=== PATIENT | male | born 1970 | race Caucasian/White ===

== ENCOUNTER 2022-02-11 05:17 | Emergency (ER) | payer BC ==
[2022-02-11 05:21] VITALS: TEMP 98.2
[2022-02-11] MEDS ORDERED: ONDANSETRON 4 MG/2 ML VIAL IVP STA (05:27)
[2022-02-11] MEDS ORDERED: SODIUM CHLORIDE 0.9% 1,000 ML IV STA ×2 (05:27)
[2022-02-11] MEDS ORDERED: MORPHINE SULFATE 4 MG/ML SYRINGE IV STA (05:27)
[2022-02-11] MEDS ORDERED: KETOROLAC 15 MG/ML 1 ML VIAL IVP STA (05:27)
[2022-02-11] MEDS ORDERED: SODIUM CHLORIDE 0.9% 500 ML 500 ML IV STA (05:27)
--- NOTE | 2022-02-11 05:29 | ED ---
Abdominal Pain HPI - General Chief Complaint: Abdominal Pain Stated Complaint: RT side kidney stone Time Seen by Provider: 02/11/22 05:26 Source: patient, RN notes reviewed, old records reviewed Mode of arrival: ambulatory Limitations: no limitations - History of Present Illness Initial Comments: This is a 51-year-old male to the emergency department for evaluation. Patient comes in with severe sudden onset of right flank pain this pain woke well from sleep and is causing significant nausea vomiting since and started going on for about an hour to 2 hours now. Patient does have history of kidney stones but has been about 6 or 7 years this pain is worse and he remembers. Patient denies any traumas a sudden onset of pain without fever or other complaint. MD Complaint: abdominal pain, flank pain -: hour(s) Location: suprapubic, R flank Radiation: suprapubic, R flank Migration to: RLQ Severity scale (1-10): 9 Quality: sharp Consistency: constant Improves With: nothing Worsens With: nothing Associated Symptoms: nausea, vomiting Treatments Prior to Arrival: other (none) - Related Data Home Medications Medication Instructions Recorded Confirmed Inulin/Chromium Picolinate [Fiber 2 tab PO DAILY 06/15/16 06/15/16 Gummies Chew] Previous Rx's Medication Instructions Recorded HYDROcodone/APAP 5-325MG [[place] 1 tab PO Q4HR PRN #20 tab 06/15/16 5-325] Ondansetron Odt [Zofran Odt] 4 mg PO Q8HR PRN #12 tab 06/15/16 Tamsulosin HCl [Flomax] 0.4 mg PO DAILY #12 cap 06/15/16 Allergies Allergy/AdvReac Type Severity Reaction Status Date / Time No Known Allergies Allergy Verified 02/11/22 05:18 Review of Systems ROS Statement: Those systems with pertinent positive or pertinent negative responses have been documented in the HPI. ROS Other: All systems not noted in ROS Statement are negative. Past Medical History Past Medical History: GERD/Reflux Additional Past Medical History / Comment(s): diverticultis,kidney stones History of Any Multi-Drug Resistant Organisms: None Reported Past Surgical History: No Surgical Hx Reported Additional Past Surgical History / Comment(s): EGD Past Anesthesia/Blood Transfusion Reactions: No Reported Reaction Past Psychological History: No Psychological Hx Reported Smoking Status: Never smoker Past Alcohol Use History: None Reported Past Drug Use History: None Reported - Past Family History Father Family Medical History: Pulmonary Embolus General Exam Limitations: no limitations General appearance: alert, in no apparent distress Head exam: Present: atraumatic, normocephalic, normal inspection Eye exam: Present: normal appearance, PERRL, EOMI. Absent: scleral icterus, conjunctival injection, periorbital swelling ENT exam: Present: normal exam, mucous membranes moist Neck exam: Present: normal inspection. Absent: tenderness, meningismus, lymphadenopathy Respiratory exam: Present: normal lung sounds bilaterally. Absent: respiratory distress, wheezes, rales, rhonchi, stridor Cardiovascular Exam: Present: regular rate, normal rhythm, normal heart sounds. Absent: systolic murmur, diastolic murmur, rubs, gallop, clicks GI/Abdominal exam: Present: soft, normal bowel sounds. Absent: distended, tenderness, guarding, rebound, rigid Extremities exam: Present: normal inspection, full ROM, normal capillary refill. Absent: tenderness, pedal edema, joint swelling, calf tenderness Back exam: Present: normal inspection Neurological exam: Present: alert, oriented X3, CN II-XII intact Psychiatric exam: Present: normal affect, normal mood Skin exam: Present: warm, dry, intact, normal color. Absent: rash Course Vital Signs 02/11/22 02/11/22 05:18 06:41 Temperature 98.2 F Pulse Rate 70 60 Respiratory 16 20 Rate Blood Pressure 153/108 165/90 O2 Sat by Pulse 96 95 Oximetry - Reevaluation(s) Reevaluation #1: 02/11/22 Medical record is reviewed Reevaluation #2: 02/11/22 Patient's pain is improved Patient did require second dose of pain medication Reevaluation #3: 02/11/22 Patient informed results, questions answered Medical Decision Making - Medical Decision Making 51 male to ER with kidney stones history of kidney stones. Patient presents with positive kidney stones today obstructing pain is well-controlled currently can be discharged home - Lab Data Result diagrams: 02/11/22 05:32 02/11/22 05:32 Lab Results 02/11/22 02/11/22 02/11/22 Range/Units 05:32 05:32 05:32 WBC 8.7 (3.8-10.6) k/uL RBC 4.84 (4.30-5.90) m/uL Hgb 15.7 (13.0-17.5) gm/dL Hct 45.3 (39.0-53.0) % MCV 93.7 (80.0-100.0) fL MCH 32.4 (25.0-35.0) pg MCHC 34.6 (31.0-37.0) g/dL RDW 13.4 (11.5-15.5) % Plt Count 257 (150-450) k/uL MPV 8.0 Neutrophils % (Manual) 39 % Lymphocytes % (Manual) 51 % Monocytes % (Manual) 7 % Eosinophils % (Manual) 2 % Basophils % (Manual) 1 % Neutrophils # (Manual) 3.39 (1.3-7.7) k/uL Lymphocytes # (Manual) 4.44 (1.0-4.8) k/uL Monocytes # (Manual) 0.61 (0-1.0) k/uL Eosinophils # (Manual) 0.17 (0-0.7) k/uL Basophils # (Manual) 0.09 (0-0.2) k/uL Nucleated RBCs 0 (0-0) /100 WBC Differential Comment Manual Slide Review Performed RBC Morphology Normal Sodium 139 (137-145) mmol/L Potassium 4.3 (3.5-5.1) mmol/L Chloride 109 H (98-107) mmol/L Carbon Dioxide 24 (22-30) mmol/L Anion Gap 6 mmol/L BUN 19 (9-20) mg/dL Creatinine 1.13 (0.66-1.25) mg/dL Est GFR (CKD-EPI)AfAm 88 (>60 ml/min/1.73 sqM) Est GFR (CKD-EPI)NonAf 76 (>60 ml/min/1.73 sqM) Glucose 114 H (74-99) mg/dL Calcium 8.9 (8.4-10.2) mg/dL Total Bilirubin 0.7 (0.2-1.3) mg/dL AST 41 (17-59) U/L ALT 59 H (4-49) U/L Alkaline Phosphatase 67 (38-126) U/L Total Protein 7.0 (6.3-8.2) g/dL Albumin 4.2 (3.5-5.0) g/dL Amylase 90 (30-110) U/L Lipase 103 (23-300) U/L Urine Color Yellow Urine Appearance Clear (Clear) Urine pH 5.5 (5.0-8.0) Ur Specific [place] 1.018 (1.001-1.035) Urine Protein Negative (Negative) Urine Glucose (UA) Negative (Negative) Urine Ketones Negative (Negative) Urine Blood Large H (Negative) Urine Nitrite Negative (Negative) Urine Bilirubin Negative (Negative) Urine Urobilinogen <2.0 (<2.0) mg/dL Ur Leukocyte Esterase Negative (Negative) Urine RBC >182 H (0-5) /hpf Urine WBC 1 (0-5) /hpf Hyaline Casts 3 H (0-2) /lpf Urine Mucus Rare H (None) /hpf Urine Yeast (Budding) Few H (None) /hpf - Radiology Data Radiology results: report reviewed (CT abdomen and pelvis positive for obstructing kidney stone), image reviewed Disposition Clinical Impression: Abdominal pain, Right ureteral calculus Disposition: HOME SELF-CARE Condition: Good Instructions (If sedation given, give patient instructions): Kidney Stones (ED) Is patient prescribed a controlled substance at d/c from ED?: No Referrals: Jose Reed DO [Primary Care Provider] - 1-2 days Raza Barnes MD [STAFF PHYSICIAN] - 1-2 days Time of Disposition: 06:45
[2022-02-11 05:56] LABS: Albumin 4.2 g/dL (3.5-5.0); Calcium 8.9 mg/dL (8.4-10.2); Potassium 4.3 mmol/L (3.5-5.1); Total Bilirubin 0.7 mg/dL (0.2-1.3)
[2022-02-11] MEDS ORDERED: IBUPROFEN 600 MG STARTER PACK 4 TAB BTL PO STA (06:18)
[2022-02-11] MEDS ORDERED: ONDANSETRON 4 MG ODT STARTER PACK 2 TAB BTL PO STA (06:18)
[2022-02-11] MEDS ORDERED: ACET/COD 300 MG/30 MG STARTER PACK 6 TAB BTL PO STA (06:18)
[2022-02-11] MEDS ORDERED: TAMSULOSIN 0.4 MG CAP.ER.24H PO STA (06:24)
[2022-02-11] MEDS ORDERED: HYDROmorphone 1 MG/ML 1 ML SYRINGE IVP STA (06:34)
--- NOTE | 2022-02-11 06:37 | CT ---
EXAMINATION TYPE: CT abdomen pelvis wo con DATE OF EXAM: 02/11/2022 COMPARISON: 10/21/2014 HISTORY: pain CT DLP: 1347.3 mGycm Automated exposure control for dose reduction was used. Images obtained from the diaphragm to the floor the pelvis with no contrast. The lung bases are clear of consolidation. No pleural effusion. Heart size is normal. No pericardial effusion. There is fatty infiltration of the liver. Spleen is intact. Stomach is intact. There is no pancreatic mass. Gallbladder appears normal. The bile ducts are not dilated. There is no adrenal mass. Kidneys have normal size. There is right-sided mild hydronephrosis and obst ructing 5 mm calculus at the right ureteral pelvic junction. There are multiple small bilateral renal calculi. The ureters are not dilated. There is no retroperitoneal adenopathy. Bladder is almost empt y. No inguinal hernia. No free fluid in the pelvis. There are multiple sigmoid diverticula. No diverticulitis. Appendix is posterior and appears normal. There is no mesenteric edema. No ascites or free air. No bowel obstruction. There is 3 cm lipoma with in the right lateral abdominal wall musculature. The lumbar vertebrae have normal alignment. No compression fracture. There is vacuum disc at L5-S1. B zan pelvis is intact. The hip joints are intact. IMPRESSION: Obstructing calculus at the right ureteropelvic junction. Multiple bilateral renal calculi. Renal jose culi appear new compared to old exam. Sigmoid diverticulosis. There is clearing of the diverticulitis in the proximal sigmoid colon compare d to the old exam.
[2022-02-11 06:42] VITALS: BP 165/90; PULSE 60; RESP 20
[2022-02-11 06:44] LABS: Appearance,Urine Clear (Clear); Bilirubin,Urine Negative (Negative); Blood,Urine Large (Negative); Budding Yeast,Urine Few /hpf; Color,Urine Yellow; Glucose,Urine (UA) Negative (Negative); Hyaline Casts,Urine 3 /lpf (0-2); Ketones,Urine Negative (Negative); Leukocyte Esterase,Urine Negative (Negative); Mucus,Urine Rare /hpf; Nitrite,Urine Negative (Negative); PH, Urine 5.5 (5.0-8.0); Protein,Urine Negative (Negative); RBC,Urine >182 /hpf (0-5); Specific Gravity,Urine 1.018 (1.001-1.035); Urobilinogen,Urine <2.0 mg/dL (<2.0); WBC,Urine 1 /hpf (0-5)
[2022-02-11 06:51] LABS: HCT 45.3 % (39.0-53.0); HGB 15.7 gm/dL (13.0-17.5); MCH 32.4 pg (25.0-35.0); MCHC 34.6 g/dL (31.0-37.0); MCV 93.7 fL (80.0-100.0); Platelet Count 257 k/uL (150-450); RBC 4.84 m/uL (4.30-5.90); RDW 13.4 % (11.5-15.5); WBC 8.7 k/uL (3.8-10.6)
[2022-02-11 09:17] LABS: Basophils # (M) 0.09 k/uL (0-0.2); Eosinophils # (M) 0.17 k/uL (0-0.7); Lymphocytes # (M) 4.44 k/uL (1.0-4.8); Monocytes # (M) 0.61 k/uL (0-1.0); Neutrophils # (M) 3.39 k/uL (1.3-7.7); Neutrophils % (M) 39 %; Nucleated Red Blood Cells 0 /100 WBC (0-0); RBC Morphology Normal; Total Cells Counted 100
== END 2022-02-11 07:00 | disposition home or self-care (01) ==
LOC: EC 05:17
DX: N20.1 Calculus of ureter (principal)
CPT/HCPCS: 36415; 80053; 82150; 83690; 85025; 81001; 74176; 99284; 96374; 96361; 96375; J2270; J2405; J1170; J1885; S0119

== ENCOUNTER 2022-02-15 09:07 | Emergency (ER) | payer BC ==
[2022-02-15 09:10] VITALS: TEMP 97.1
[2022-02-15] MEDS ORDERED: HYDROmorphone 0.5 MG/0.5 ML SYRINGE IVP STA (09:20)
[2022-02-15] MEDS ORDERED: KETOROLAC 15 MG/ML 1 ML VIAL IVP STA (09:20)
[2022-02-15] MEDS ORDERED: ONDANSETRON 4 MG/2 ML VIAL IVP STA (09:20)
[2022-02-15] MEDS ORDERED: SODIUM CHLORIDE 0.9% 2,000 ML IV STA (09:20)
--- NOTE | 2022-02-15 09:22 | ED ---
Back Pain HPI - General Chief Complaint: Back Pain/Injury Stated Complaint: revisit/kidney stone Time Seen by Provider: 02/15/22 09:10 Source: patient, RN notes reviewed Mode of arrival: ambulatory Limitations: no limitations - History of Present Illness Initial Comments: 51-year-old male presents emergency Department with chief complaint right flank pain. Patient states she seen here for days ago diagnosed with right sided kidney stone. Patient states that the pain started to feel better but worsens morning Creason vomiting, uncontrolled pain. Patient did contact urology waiting for appointment. Patient denies any fevers chills no dysuria. Patient did take some pain meds at home with no relief of symptoms. - Related Data Home Medications Medication Instructions Recorded Confirmed Inulin/Chromium Picolinate [Fiber 2 tab PO DAILY 06/15/16 06/15/16 Gummies Chew] Previous Rx's Medication Instructions Recorded HYDROcodone/APAP 5-325MG [[place] 1 tab PO Q4HR PRN #20 tab 06/15/16 5-325] Ondansetron Odt [Zofran Odt] 4 mg PO Q8HR PRN #12 tab 06/15/16 Tamsulosin HCl [Flomax] 0.4 mg PO DAILY #12 cap 06/15/16 HYDROcodone/APAP 7.5-325MG [[place] 1 tab PO Q6HR PRN 3 Days #12 tab 02/15/22 7.5-325] Ondansetron Odt [Zofran Odt] 4 mg PO Q8HR PRN #10 tab 02/15/22 Allergies Allergy/AdvReac Type Severity Reaction Status Date / Time No Known Allergies Allergy Verified 02/15/22 09:10 Review of Systems ROS Statement: Those systems with pertinent positive or pertinent negative responses have been documented in the HPI. ROS Other: All systems not noted in ROS Statement are negative. Past Medical History Past Medical History: GERD/Reflux Additional Past Medical History / Comment(s): diverticultis,kidney stones History of Any Multi-Drug Resistant Organisms: None Reported Past Surgical History: No Surgical Hx Reported Additional Past Surgical History / Comment(s): EGD Past Anesthesia/Blood Transfusion Reactions: No Reported Reaction Past Psychological History: No Psychological Hx Reported Smoking Status: Never smoker Past Alcohol Use History: None Reported Past Drug Use History: None Reported - Past Family History Father Family Medical History: Pulmonary Embolus General Exam Limitations: no limitations General appearance: alert, in no apparent distress Head exam: Present: atraumatic, normocephalic, normal inspection Eye exam: Present: normal appearance, PERRL, EOMI. Absent: scleral icterus, conjunctival injection, periorbital swelling ENT exam: Present: normal exam, mucous membranes moist Neck exam: Present: normal inspection, full ROM. Absent: tenderness, meningismus, lymphadenopathy Respiratory exam: Present: normal lung sounds bilaterally. Absent: respiratory distress, wheezes, rales, rhonchi, stridor Cardiovascular Exam: Present: regular rate, normal rhythm, normal heart sounds. Absent: systolic murmur, diastolic murmur, rubs, gallop, clicks GI/Abdominal exam: Present: soft, normal bowel sounds. Absent: distended, tenderness, guarding, rebound, rigid Back exam: Present: CVA tenderness (R) (Minimal). Absent: CVA tenderness (L) Neurological exam: Present: alert Skin exam: Present: warm, dry, intact, normal color. Absent: rash Course Vital Signs 02/15/22 09:08 Temperature 97.1 F L Pulse Rate 65 Respiratory 20 Rate Blood Pressure 131/90 O2 Sat by Pulse 95 Oximetry Medical Decision Making - Medical Decision Making This a 51-year-old male presented for right flank pain. Patient does have known kidney stone which appears to be in the mid third of the ureter. Patient's pain is improved. I did discuss case with Dr. Sebastian which patient will follow-up in office this week. Patient be kept on pain control, Flomax, at home fluids. - Lab Data Result diagrams: 02/15/22 10:13 02/15/22 11:04 Lab Results 02/15/22 02/15/22 02/15/22 Range/Units 10:13 10:13 11:04 WBC 9.3 (3.8-10.6) k/uL RBC 5.02 (4.30-5.90) m/uL Hgb 16.5 (13.0-17.5) gm/dL Hct 46.1 (39.0-53.0) % MCV 91.9 (80.0-100.0) fL MCH 32.9 (25.0-35.0) pg MCHC 35.8 (31.0-37.0) g/dL RDW 13.5 (11.5-15.5) % Plt Count 262 (150-450) k/uL MPV 8.0 Neutrophils % 78 % Lymphocytes % 12 % Monocytes % 5 % Eosinophils % 1 % Basophils % 1 % Neutrophils # 7.3 (1.3-7.7) k/uL Lymphocytes # 1.1 (1.0-4.8) k/uL Monocytes # 0.5 (0-1.0) k/uL Eosinophils # 0.1 (0-0.7) k/uL Basophils # 0.1 (0-0.2) k/uL Sodium 139 (137-145) mmol/L Potassium 4.0 (3.5-5.1) mmol/L Chloride 109 H (98-107) mmol/L Carbon Dioxide 21 L (22-30) mmol/L Anion Gap 9 mmol/L BUN 24 H (9-20) mg/dL Creatinine 1.74 H (0.66-1.25) mg/dL Est GFR (CKD-EPI)AfAm 52 (>60 ml/min/1.73 sqM) Est GFR (CKD-EPI)NonAf 45 (>60 ml/min/1.73 sqM) Glucose 99 (74-99) mg/dL Calcium 8.3 L (8.4-10.2) mg/dL Total Bilirubin 0.9 (0.2-1.3) mg/dL AST 31 (17-59) U/L ALT 40 (4-49) U/L Alkaline Phosphatase 63 (38-126) U/L Total Protein 6.9 (6.3-8.2) g/dL Albumin 4.0 (3.5-5.0) g/dL Lipase 65 (23-300) U/L Urine Color Yellow Urine Appearance Cloudy (Clear) Urine pH 5.5 (5.0-8.0) Ur Specific [place] 1.030 (1.001-1.035) Urine Protein Trace H (Negative) Urine Glucose (UA) Negative (Negative) Urine Ketones Trace H (Negative) Urine Blood Moderate H (Negative) Urine Nitrite Negative (Negative) Urine Bilirubin Negative (Negative) Urine Urobilinogen <2.0 (<2.0) mg/dL Ur Leukocyte Esterase Negative (Negative) Urine RBC 79 H (0-5) /hpf Urine WBC 1 (0-5) /hpf Amorphous Sediment Few H (None) /hpf Urine Mucus Few H (None) /hpf Disposition Clinical Impression: Right ureteral calculus Disposition: HOME SELF-CARE Condition: Stable Instructions (If sedation given, give patient instructions): Kidney Stones (ED) Additional Instructions: Please return to the Emergency Department if symptoms worsen or any other concerns. Prescriptions: HYDROcodone/APAP 7.5-325MG [[place] 7.5-325] 1 tab PO Q6HR PRN 3 Days #12 tab PRN Reason: Pain Ondansetron Odt [Zofran Odt] 4 mg PO Q8HR PRN #10 tab PRN Reason: Nausea Is patient prescribed a controlled substance at d/c from ED?: Yes When asked, does pt state using other controlled substances?: No If prescribed controlled substance>3 days was MAPS reviewed?: Prescribed <3 Days If opioid is for acute pain is fill amount 7 days or less?: Yes If Rx opioid, was Start Talking consent form obtained?: Yes Referrals: Jose Reed DO [Primary Care Provider] - 1-2 days Seferino Ball MD [STAFF PHYSICIAN] - 1-2 days Time of Disposition: 11:53
[2022-02-15 10:50] LABS: Amorphous Sediment,Urine Few /hpf; Appearance,Urine Cloudy (Clear); Bilirubin,Urine Negative (Negative); Blood,Urine Moderate (Negative); Color,Urine Yellow; Glucose,Urine (UA) Negative (Negative); Ketones,Urine Trace (Negative); Leukocyte Esterase,Urine Negative (Negative); Mucus,Urine Few /hpf; Nitrite,Urine Negative (Negative); PH, Urine 5.5 (5.0-8.0); Protein,Urine Trace (Negative); RBC,Urine 79 /hpf (0-5); Urobilinogen,Urine <2.0 mg/dL (<2.0); WBC,Urine 1 /hpf (0-5)
[2022-02-15 11:00] LABS: Basophils # (A) 0.1 k/uL (0-0.2); Basophils % (A) 1 %; Eosinophils # (A) 0.1 k/uL (0-0.7); Eosinophils % (A) 1 %; HCT 46.1 % (39.0-53.0); HGB 16.5 gm/dL (13.0-17.5); Lymphocytes # (A) 1.1 k/uL (1.0-4.8); Lymphocytes % (A) 12 %; MCH 32.9 pg (25.0-35.0); MCHC 35.8 g/dL (31.0-37.0); MCV 91.9 fL (80.0-100.0); Monocytes # (A) 0.5 k/uL (0-1.0); Monocytes % (A) 5 %; Neutrophils # (A) 7.3 k/uL (1.3-7.7); Neutrophils % (A) 78 %; Platelet Count 262 k/uL (150-450); RBC 5.02 m/uL (4.30-5.90); RDW 13.5 % (11.5-15.5); WBC 9.3 k/uL (3.8-10.6)
--- NOTE | 2022-02-15 11:04 | XR ---
EXAMINATION TYPE: XR KUB DATE OF EXAM: 02/15/2022 Comparison: 06/15/2016, CT 02/11/2022 Clinical History: 51-year-old male right renal stone, flank pain Findings: A few scattered prominent small bowel loops measuring up to 3.5 cm, probably transient. Left-sided pe lvic phlebolith. Overall nonobstructive bowel gas pattern with mild stool in the right side of the ab domen and air extending distally to the rectum. Possible 5 mm calculus at the right perimedian midabdomen. Impression: 1. Possible 5 mm calculus right paramedian mid abdomen. This may represent the patient's right urinar y tract calculus now in the middle third ureter. 2. A few scattered borderline distended small bowel loops measuring up to 3.5 cm probably transient. Correlate to exclude a mild ileus or enteritis.
[2022-02-15 11:38] LABS: Calcium 8.3 mg/dL (8.4-10.2); Total Bilirubin 0.9 mg/dL (0.2-1.3); Total Protein 6.9 g/dL (6.3-8.2)
[2022-02-15 12:47] VITALS: BP 121/81; PULSE 92; RESP 18
== END 2022-02-15 12:47 | disposition home or self-care (01) ==
LOC: EC 09:07
DX: N20.0 Calculus of kidney (principal)
CPT/HCPCS: 36415; 80053; 83690; 85025; 81001; 74018; 96361; 99284; 96374; 96375; J2405; J1885; J1170

== ENCOUNTER 2022-02-17 05:07 | Inpatient (IN) | payer BC ==
[2022-02-17] MEDS ORDERED: HYDROmorphone 1 MG/ML 1 ML SYRINGE IVP STA (05:40)
[2022-02-17] MEDS ORDERED: KETOROLAC 15 MG/ML 1 ML VIAL IVP STA (05:41)
[2022-02-17] MEDS ORDERED: ONDANSETRON 4 MG/2 ML VIAL IVP STA (05:41)
--- NOTE | 2022-02-17 06:02 | ED ---
Abdominal Pain HPI - General Chief Complaint: Abdominal Pain Stated Complaint: Abd Pain Time Seen by Provider: 02/17/22 05:23 Source: patient Mode of arrival: ambulatory Limitations: no limitations - History of Present Illness Initial Comments: This patient is a 51-year-old man who presents to have evaluation of right flank pain. The pain had started on February 11, was sharp, severe, and he was seen here for the same. He was found to have kidney stone, a 5 mm UPJ stone with some hydronephrosis. I patient did have symptom relief and was discharged. He returned here 2 days ago for similar symptoms had symptom management and went home but states that he is continuing to have pains that are not manageable with the home [place]. No fever or chills. MD Complaint: flank pain -: days(s) Location: R flank Radiation: none Severity: severe Quality: sharp Consistency: colicky Improves With: nothing Worsens With: nothing Associated Symptoms: nausea, vomiting - Related Data Home Medications Medication Instructions Recorded Confirmed Docusate [Colace] 100 mg PO DAILY 02/17/22 02/18/22 Previous Rx's Medication Instructions Recorded Tamsulosin HCl [Flomax] 0.4 mg PO DAILY #12 cap 06/15/16 HYDROcodone/APAP 7.5-325MG [[place] 1 tab PO Q6HR PRN 3 Days #12 tab 02/15/22 7.5-325] Ondansetron Odt [Zofran Odt] 4 mg PO Q8HR PRN #10 tab 02/15/22 Allergies Allergy/AdvReac Type Severity Reaction Status Date / Time No Known Allergies Allergy Verified 02/18/22 13:49 Review of Systems ROS Statement: Those systems with pertinent positive or pertinent negative responses have been documented in the HPI. ROS Other: All systems not noted in ROS Statement are negative. Constitutional: Denies: fever, chills Respiratory: Denies: cough, dyspnea Cardiovascular: Denies: chest pain, edema, syncope Gastrointestinal: Reports: as per HPI, abdominal pain, nausea, vomiting. Denies: diarrhea Genitourinary: Denies: dysuria, hematuria, testicular pain, testicular mass Musculoskeletal: Denies: back pain Skin: Denies: rash Neurological: Denies: headache, weakness Past Medical History Past Medical History: GERD/Reflux Additional Past Medical History / Comment(s): diverticultis,kidney stones History of Any Multi-Drug Resistant Organisms: None Reported Past Surgical History: No Surgical Hx Reported Additional Past Surgical History / Comment(s): EGD Past Anesthesia/Blood Transfusion Reactions: No Reported Reaction Past Psychological History: No Psychological Hx Reported Smoking Status: Never smoker Past Alcohol Use History: None Reported Past Drug Use History: None Reported - Past Family History Father Family Medical History: Pulmonary Embolus General Exam Limitations: no limitations General appearance: alert, in no apparent distress Head exam: Present: atraumatic, normocephalic Eye exam: Present: normal appearance. Absent: scleral icterus, conjunctival injection Neck exam: Present: normal inspection, full ROM Respiratory exam: Present: normal lung sounds bilaterally. Absent: respiratory distress, wheezes, rales, rhonchi, stridor Cardiovascular Exam: Present: regular rate, normal rhythm, normal heart sounds. Absent: systolic murmur, diastolic murmur, rubs, gallop GI/Abdominal exam: Present: soft. Absent: distended, tenderness, guarding, rebound, rigid, mass Extremities exam: Present: normal inspection, normal capillary refill. Absent: pedal edema, calf tenderness Back exam: Present: normal inspection. Absent: CVA tenderness (R), CVA tenderness (L) Neurological exam: Present: alert Skin exam: Present: warm, dry, intact, normal color. Absent: rash Course Vital Signs 02/17/22 02/17/22 05:08 08:54 Temperature 97.6 F 97.7 F Pulse Rate 77 Pulse Rate [ 71 Pulse Oximetery ] Respiratory 22 18 Rate Blood Pressure 148/88 Blood Pressure 143/81 [Right Arm] O2 Sat by Pulse 97 95 Oximetry Medical Decision Making - Lab Data Result diagrams: 02/17/22 05:36 02/17/22 05:36 Lab Results 02/17/22 02/17/22 02/17/22 Range/Units 05:36 05:36 05:36 WBC 12.3 H (3.8-10.6) k/uL RBC 5.03 (4.30-5.90) m/uL Hgb 15.8 (13.0-17.5) gm/dL Hct 46.5 (39.0-53.0) % MCV 92.3 (80.0-100.0) fL MCH 31.3 (25.0-35.0) pg MCHC 33.9 (31.0-37.0) g/dL RDW 12.5 (11.5-15.5) % Plt Count 288 (150-450) k/uL MPV 7.4 Neutrophils % 76 % Lymphocytes % 13 % Monocytes % 6 % Eosinophils % 1 % Basophils % 1 % Neutrophils # 9.4 H (1.3-7.7) k/uL Lymphocytes # 1.6 (1.0-4.8) k/uL Monocytes # 0.7 (0-1.0) k/uL Eosinophils # 0.1 (0-0.7) k/uL Basophils # 0.1 (0-0.2) k/uL Sodium 139 (137-145) mmol/L Potassium 4.5 (3.5-5.1) mmol/L Chloride 106 (98-107) mmol/L Carbon Dioxide 21 L (22-30) mmol/L Anion Gap 12 mmol/L BUN 19 (9-20) mg/dL Creatinine 1.56 H (0.66-1.25) mg/dL Est GFR (CKD-EPI)AfAm 60 (>60 ml/min/1.73 sqM) Est GFR (CKD-EPI)NonAf 52 (>60 ml/min/1.73 sqM) Glucose 111 H (74-99) mg/dL Calcium 9.3 (8.4-10.2) mg/dL Total Bilirubin 1.1 (0.2-1.3) mg/dL AST 33 (17-59) U/L ALT 41 (4-49) U/L Alkaline Phosphatase 69 (38-126) U/L Total Protein 7.9 (6.3-8.2) g/dL Albumin 4.7 (3.5-5.0) g/dL Amylase 84 (30-110) U/L Lipase 75 (23-300) U/L Urine Color Yellow Urine Appearance Clear (Clear) Urine pH 5.5 (5.0-8.0) Ur Specific [place] 1.028 (1.001-1.035) Urine Protein Trace H (Negative) Urine Glucose (UA) Negative (Negative) Urine Ketones 2+ H (Negative) Urine Blood Large H (Negative) Urine Nitrite Negative (Negative) Urine Bilirubin Negative (Negative) Urine Urobilinogen <2.0 (<2.0) mg/dL Ur Leukocyte Esterase Negative (Negative) Urine RBC 172 H (0-5) /hpf Urine WBC 2 (0-5) /hpf Amorphous Sediment Rare H (None) /hpf Hyaline Casts 4 H (0-2) /lpf Urine Mucus Few H (None) /hpf Disposition Clinical Impression: Right ureteral calculus, Abdominal pain Disposition: ADMITTED IP TO THIS HOSP Condition: Good Is patient prescribed a controlled substance at d/c from ED?: No Time of Disposition: 06:30
[2022-02-17 06:09] LABS: Amorphous Sediment,Urine Rare /hpf; Appearance,Urine Clear (Clear); Bilirubin,Urine Negative (Negative); Blood,Urine Large (Negative); Color,Urine Yellow; Glucose,Urine (UA) Negative (Negative); Hyaline Casts,Urine 4 /lpf (0-2); Ketones,Urine 2+ (Negative); Leukocyte Esterase,Urine Negative (Negative); Mucus,Urine Few /hpf; Nitrite,Urine Negative (Negative); PH, Urine 5.5 (5.0-8.0); Protein,Urine Trace (Negative); RBC,Urine 172 /hpf (0-5); Specific Gravity,Urine 1.028 (1.001-1.035); Urobilinogen,Urine <2.0 mg/dL (<2.0); WBC,Urine 2 /hpf (0-5)
[2022-02-17 06:20] LABS: Albumin 4.7 g/dL (3.5-5.0); Calcium 9.3 mg/dL (8.4-10.2); Potassium 4.5 mmol/L (3.5-5.1); Total Bilirubin 1.1 mg/dL (0.2-1.3); Total Protein 7.9 g/dL (6.3-8.2)
[2022-02-17 06:26] LABS: Basophils # (A) 0.1 k/uL (0-0.2); Basophils % (A) 1 %; Eosinophils # (A) 0.1 k/uL (0-0.7); Eosinophils % (A) 1 %; HCT 46.5 % (39.0-53.0); HGB 15.8 gm/dL (13.0-17.5); Lymphocytes # (A) 1.6 k/uL (1.0-4.8); Lymphocytes % (A) 13 %; MCH 31.3 pg (25.0-35.0); MCHC 33.9 g/dL (31.0-37.0); MCV 92.3 fL (80.0-100.0); Mean Platelet Volume 7.4; Monocytes # (A) 0.7 k/uL (0-1.0); Monocytes % (A) 6 %; Neutrophils # (A) 9.4 k/uL (1.3-7.7); Neutrophils % (A) 76 %; Platelet Count 288 k/uL (150-450); RBC 5.03 m/uL (4.30-5.90); RDW 12.5 % (11.5-15.5); WBC 12.3 k/uL (3.8-10.6)
[2022-02-17] MEDS ORDERED: HYDROmorphone 1 MG/ML 1 ML SYRINGE IVP PRN (06:30)
[2022-02-17] MEDS ORDERED: NALOXONE 0.4 MG/ML 1 ML VIAL IV PRN (06:30)
[2022-02-17] MEDS ORDERED: ONDANSETRON 4 MG/2 ML VIAL IVP PRN (06:30)
[2022-02-17] MEDS ORDERED: KETOROLAC 15 MG/ML 1 ML VIAL IVP PRN (06:30)
[2022-02-17] MEDS: SODIUM CHLORIDE 0.9% 1,000 ML IV SCH ×2 (06:38→22:52)
--- NOTE | 2022-02-17 12:10 | P.GSHP ---
History of Present Illness H&P Date: 02/17/22 This is a 51-year-old male with a history of a 5 mm right-sided ureteral stone, he's been having intractable pain secondary to his kidney stone. This is his 3rd emergency department presentation for his stone. Of note he is set up for a right-sided ESWL on February 21, but currently having intractable pain associated with nausea or vomiting. Denies any dysuria or gross hematuria, he does have history of kidney stones in the past which he passed spontaneously. - Constitutional Constitutional: Denies chills, Denies fever - EENT Ears, nose, mouth and throat: Denies headache, Denies sore throat - Cardiovascular Cardiovascular: Denies chest pain, Denies shortness of breath - Respiratory Respiratory: Denies cough, Denies 7 - Gastrointestinal Gastrointestinal: Reports nausea, Reports vomiting - Genitourinary (Male) Genitourinary: Reports flank pain, Reports kidney stones, Denies dysuria, Denies hematuria - Musculoskeletal Musculoskeletal: Denies myalgias - Integumentary Integumentary: Denies pruritus, Denies rash - Neurological Neurological: Denies numbness, Denies weakness Past Medical History Past Medical History: GERD/Reflux Additional Past Medical History / Comment(s): diverticultis,kidney stones History of Any Multi-Drug Resistant Organisms: None Reported Past Surgical History: No Surgical Hx Reported Additional Past Surgical History / Comment(s): EGD Past Anesthesia/Blood Transfusion Reactions: No Reported Reaction Past Psychological History: No Psychological Hx Reported Smoking Status: Never smoker Past Alcohol Use History: None Reported Past Drug Use History: None Reported - Past Family History Father Family Medical History: Diabetes Mellitus, Myocardial Infarction ([place]), Pulmonary Embolus Medications and Allergies Home Medications Medication Instructions Recorded Confirmed Type Tamsulosin HCl [Flomax] 0.4 mg PO DAILY #12 cap 06/15/16 02/17/22 Rx HYDROcodone/APAP 7.5-325MG [[place] 1 tab PO Q6HR PRN 3 Days #12 tab 02/15/22 02/17/22 Rx 7.5-325] Ondansetron Odt [Zofran Odt] 4 mg PO Q8HR PRN #10 tab 02/15/22 02/17/22 Rx Docusate [Colace] 100 mg PO DAILY 02/17/22 02/17/22 History Allergies Allergy/AdvReac Type Severity Reaction Status Date / Time No Known Allergies Allergy Verified 02/17/22 07:25 Surgical - Exam Vital Signs Temp Pulse Resp BP Pulse Ox 97.6 F 77 22 148/88 97 02/17/22 05:08 02/17/22 05:08 02/17/22 05:08 02/17/22 05:08 02/17/22 05:08 - General no distress, moderate pain - Eyes no normal ocular movement, no pale - ENT normal nares, normal mucosa - Respiratory normal expansion, normal respiratory effort - Abdomen Abdomen: soft, tender (Right flank) - Psychiatric oriented to time, oriented to person, oriented to place Results - Labs 02/17/22 05:36 02/17/22 05:36 Abnormal Lab Results - Last 24 Hours (Table) 02/17/22 02/17/22 02/17/22 Range/Units 05:36 05:36 05:36 WBC 12.3 H (3.8-10.6) k/uL Neutrophils # 9.4 H (1.3-7.7) k/uL Carbon Dioxide 21 L (22-30) mmol/L Creatinine 1.56 H (0.66-1.25) mg/dL Glucose 111 H (74-99) mg/dL Urine Protein Trace H (Negative) Urine Ketones 2+ H (Negative) Urine Blood Large H (Negative) Urine RBC 172 H (0-5) /hpf Amorphous Sediment Rare H (None) /hpf Hyaline Casts 4 H (0-2) /lpf Urine Mucus Few H (None) /hpf Diabetes panel 02/17/22 Range/Units 05:36 Sodium 139 (137-145) mmol/L Potassium 4.5 (3.5-5.1) mmol/L Chloride 106 (98-107) mmol/L Carbon Dioxide 21 L (22-30) mmol/L BUN 19 (9-20) mg/dL Creatinine 1.56 H (0.66-1.25) mg/dL Glucose 111 H (74-99) mg/dL Calcium 9.3 (8.4-10.2) mg/dL AST 33 (17-59) U/L ALT 41 (4-49) U/L Alkaline Phosphatase 69 (38-126) U/L Total Protein 7.9 (6.3-8.2) g/dL Albumin 4.7 (3.5-5.0) g/dL Calcium panel 02/17/22 Range/Units 05:36 Calcium 9.3 (8.4-10.2) mg/dL Albumin 4.7 (3.5-5.0) g/dL Pituitary panel 02/17/22 Range/Units 05:36 Sodium 139 (137-145) mmol/L Potassium 4.5 (3.5-5.1) mmol/L Chloride 106 (98-107) mmol/L Carbon Dioxide 21 L (22-30) mmol/L BUN 19 (9-20) mg/dL Creatinine 1.56 H (0.66-1.25) mg/dL Glucose 111 H (74-99) mg/dL Calcium 9.3 (8.4-10.2) mg/dL Adrenal panel 02/17/22 Range/Units 05:36 Sodium 139 (137-145) mmol/L Potassium 4.5 (3.5-5.1) mmol/L Chloride 106 (98-107) mmol/L Carbon Dioxide 21 L (22-30) mmol/L BUN 19 (9-20) mg/dL Creatinine 1.56 H (0.66-1.25) mg/dL Glucose 111 H (74-99) mg/dL Calcium 9.3 (8.4-10.2) mg/dL Total Bilirubin 1.1 (0.2-1.3) mg/dL AST 33 (17-59) U/L ALT 41 (4-49) U/L Alkaline Phosphatase 69 (38-126) U/L Total Protein 7.9 (6.3-8.2) g/dL Albumin 4.7 (3.5-5.0) g/dL - Imaging CT scan - abdomen: image reviewed (5 mm right proximal stone, with hydronephrosis) Assessment and Plan Assessment: This is a 51-year-old male with history of a 5 mm right-sided proximal stone, this is 3rd ED presentation with pain. Discussed with him given the persistent pain and the multiple emergency department presentation the option of a right-sided ureteroscopy with holmium laser lithotripsy risk benefit and alternative were discussed in detail. He agreed to proceed with a ureteroscopy with holmium laser lithotripsy -Keep nothing by mouth -OR today for right-sided ureteroscopy with holmium laser lithotripsy, stone basketing and stent insertion
[2022-02-17] MEDS ORDERED: HYDROmorphone 0.5 MG/0.5 ML SYRINGE IVP ONE (17:35)
[2022-02-17] MEDS ORDERED: fentaNYL (PF) 50 MCG/ML 2 ML AMP ONE (18:00)
[2022-02-17] MEDS ORDERED: HYDROmorphone (PF) 1 MG/ML ONE (18:00)
[2022-02-17] MEDS ORDERED: MIDAZOLAM 2 MG/2 ML VIAL ONE (18:00)
[2022-02-17] MEDS ORDERED: LIDOCAINE 2% INJ 20 MG/ML (2 ML VIAL) ONE (18:00)
[2022-02-17] MEDS ORDERED: PROPOFOL 10 MG/ML 20 ML VIAL IV ONE (18:00)
[2022-02-17] MEDS ORDERED: ONDANSETRON 4 MG/2 ML VIAL ONE (18:00)
[2022-02-17] MEDS ORDERED: LACTATED RINGERS 1,000 ML IV ONE (18:02)
[2022-02-17] MEDS ORDERED: IOPAMIDOL-370 50ML BTL MISCELLANE ONE (18:29)
--- NOTE | 2022-02-17 19:08 | P.OP ---
Date of Procedure: 02/17/22 Preoperative Diagnosis: Right ureteral stone Postoperative Diagnosis: Same Procedure(s) Performed: Cystoscopy, right ureteroscopy, ureteral balloon dilation retrograde pyelogram, and stent insertion Implants: 6-Nepali by 28 cm stent in the right ureter Anesthesia: MAX Surgeon: Seferino Ball Estimated Blood Loss (ml): 5 Pathology: none sent Condition: stable Disposition: PACU Indications for Procedure: This is a 51-year-old male with a history of a 5 mm right-sided ureteral stone, he's been having intractable pain secondary to his kidney stone. This is his 3rd emergency department presentation for his stone. Of note he is set up for a right-sided ESWL on February 21, but currently having intractable pain associated with nausea or vomiting. Denies any dysuria or gross hematuria, he does have history of kidney stones in the past which he passed spontaneously. Operative Findings: Distal ureteral narrowing Description of Procedure: Patient brought to the operating room, general anesthesia was induced. He was prepped and draped in sterile fashion a placement dorsal lithotomy position. Cystoscopy fitted with a 21-Nepali sheath was inserted per urethra, cystoscopy was performed which showed no abnormality within the bladder. Attention was then carried to the right ureteral orifice which was intubated with a 6-Nepali open-ended catheter. Retrograde pyelogram was performed which showed filling defect in the mid ureter at the level of the stone with mild dilation proximal to that. next sensor wire was advanced through the catheter and catheter was removed with wire in place . The Stone was radiopaque and seen in the mid ureter. Of note patient's UVJ was narrowed, thus a ureteral balloon dilator was passed over the wire and the UVJ was dilated using the balloon dilator to 12- Nepali under fluoroscopy. Next the semirigid ureteroscope was inserted through the urethra and this was advanced up the right ureter. At this point a distal ureteral stricture was encountered I attempted to navigate the scope past the narrowing but was not able to. At this time ureteroscope was withdrawn and a ureteral balloon dilator was passed over the wire and the narrowed area was dilated under fluoroscopy. Next the rigid ureteroscope was reinserted and again I attempted to advance the scope past the narrowing but was not able to. Given this finding decision was made to proceed with ureteral stent. Next a cystoscope was backloaded over the wire. Next a ureteral stent was passed over the wire, the proximal curl was visualized on fluoroscopy and distal curl was visualized using the cystoscope. The bladder was emptied at the end of the case. Patient was taken to recovery in stable condition
[2022-02-18] MEDS: SODIUM CHLORIDE 0.9% 1,000 ML IV SCH (06:53)
--- NOTE | 2022-02-18 07:15 | FL ---
EXAMINATION TYPE: FL urography retrograde DATE OF EXAM: 02/17/2022 COMPARISON: NONE HISTORY: STONE/ STENT PLACEMENT TECHNIQUE: Fluoroscopy. FINDINGS: Fluoroscopic guidance was provided during procedure performed. A total of 49 sec fluoro seconds of fluoroscopic time was utilized during the procedure and 11 spot images was acquired. IMPRESSION: As Above.
[2022-02-18 07:43] VITALS: BP 127/87; PULSE 76; RESP 18; TEMP 97.7
[2022-02-18] MEDS ORDERED: TAMSULOSIN 0.4 MG CAP.ER.24H PO SCH (09:00)
--- NOTE | 2022-02-18 14:06 | P.DS ---
Providers Date of admission: 02/17/22 06:31 Attending physician: Seferino Ball MD Primary care physician: Jose [facility] Course: This is a 51 yo male with hx of right sided ureteral stone. He is admitted to the hospital with intractable pain he underwent right sided ureteroscopy with stent insertion on 02/17. please see op note dated 02/17 for surgery details. He was discharged home on POD #1 at time of discharge he was tolerating a diet, ambulating and pain was well controlled. He will f/u next week for right sided ESWL Patient Condition at Discharge: Good Plan - Discharge Summary Discharge Rx Participant: No New Discharge Prescriptions: No Action Tamsulosin HCl [Flomax] 0.4 mg PO DAILY #12 cap Ondansetron Odt [Zofran Odt] 4 mg PO Q8HR PRN #10 tab PRN Reason: Nausea HYDROcodone/APAP 7.5-325MG [[place] 7.5-325] 1 tab PO Q6HR PRN 3 Days #12 tab PRN Reason: Pain Docusate [Colace] 100 mg PO DAILY Discharge Medication List Tamsulosin HCl [Flomax] 0.4 mg PO DAILY #12 cap 06/15/16 [Rx] HYDROcodone/APAP 7.5-325MG [[place] 7.5-325] 1 tab PO Q6HR PRN 3 Days #12 tab 02/15/22 [Rx] Ondansetron Odt [Zofran Odt] 4 mg PO Q8HR PRN #10 tab 02/15/22 [Rx] Docusate [Colace] 100 mg PO DAILY 02/17/22 [History] Follow up Appointment(s)/Referral(s): Jose Reed DO [Primary Care Provider] - 1-2 days Patient Instructions/Handouts: How to Strain Your Urine (ED) Activity/Diet/Wound Care/Special Instructions: Procedure planned for Monday . Scheduling should contact you with a time Discharge Disposition: HOME SELF-CARE
== END 2022-02-18 10:55 | disposition home or self-care (01) | DRG 661 ==
LOC: EC 05:07 → 4SSUR 06:31
PROVIDERS: ADMIT Urology; ATTEND Urology
PROC: 0T768DZ Dilation of Right Ureter with Intraluminal Device, Via Natural or Artificial Opening Endoscopic (ICD-10-PCS; principal; 2022-02-17 13:25)
PROC: 0TJ98ZZ Inspection of Ureter, Via Natural or Artificial Opening Endoscopic (ICD-10-PCS; principal; 2022-02-17 13:25)
DX: N13.2 Hydronephrosis with renal and ureteral calculous obstruction (principal); K21.9 Gastro-esophageal reflux disease without esophagitis; Z79.899 Other long term (current) drug therapy; Z82.49 Family history of ischemic heart disease and other diseases of the circulatory system; Z83.3 Family history of diabetes mellitus; Z87.442 Personal history of urinary calculi; Z83.2 Family history of diseases of the blood and blood-forming organs and certain disorders involving the immune mechanism
CPT/HCPCS: 36415; 74420; 80053; 81001; 82150; 83690; 85025; 96361; 96374; 96375; 99285

== ENCOUNTER 2022-02-21 09:27 | Day surgery (SDC) | payer BC ==
[2022-02-18 13:48] VITALS: BMI 30.4
--- NOTE | 2022-02-20 12:12 | P.HPIHPCON ---
History of Present Illness H&P Date: 02/20/22 Chief Complaint: Ureteral stone This is a 51-year-old male with history of a 5 mm right-sided midureteral stone. He is status post right-sided stent insertion on February 17, attempted ureteroscopy at that time was unsuccessful due to narrowing of the distal ureter. He presents today for ESWL. Risk of surgery which includes but not limited to bleeding, infection, , renal hematoma, persistent fragments were discussed with the patient. He understood all the risk and agreed to proceed Consent for Procedure: I have explained the operation/procedure to the patient, including the risks, benefits, side effects, alternative therapies (including not receiving the proposed treatment or service), the likelihood of the patient achieving his/her goals, and potential recuperation problems for the procedure/sedation/analgesia, as well as any blood products, if indicated. I also explained to the patient the risks, benefits and side effects of the alternatives, as well as the risks related to not receiving the proposed procedure, care, treatment, or services. Past Medical History Past Medical History: GERD/Reflux Additional Past Medical History / Comment(s): Diverticultis, kidney stones. History of Any Multi-Drug Resistant Organisms: None Reported Past Surgical History: No Surgical Hx Reported Additional Past Surgical History / Comment(s): EGD, colonoscopy, cystoscopy, right ureteral stent. Past Anesthesia/Blood Transfusion Reactions: No Reported Reaction Past Psychological History: No Psychological Hx Reported Smoking Status: Never smoker Past Alcohol Use History: None Reported Past Drug Use History: None Reported - Past Family History Father Family Medical History: Diabetes Mellitus, Myocardial Infarction ([place]), Pulmonary Embolus Brother(s) Family Medical History: Pulmonary Embolus Medications and Allergies Home Medications Medication Instructions Recorded Confirmed Type Tamsulosin HCl [Flomax] 0.4 mg PO DAILY #12 cap 06/15/16 02/18/22 Rx HYDROcodone/APAP 7.5-325MG [[place] 1 tab PO Q6HR PRN 3 Days #12 tab 02/15/22 02/18/22 Rx 7.5-325] Ondansetron Odt [Zofran Odt] 4 mg PO Q8HR PRN #10 tab 02/15/22 02/18/22 Rx Docusate [Colace] 100 mg PO DAILY 02/17/22 02/18/22 History Allergies Allergy/AdvReac Type Severity Reaction Status Date / Time No Known Allergies Allergy Verified 02/18/22 13:49 Surgical - Exam - General no distress, moderate pain - ENT normal nares, normal mucosa - Abdomen Abdomen: soft, non tender - Psychiatric oriented to time, oriented to person, oriented to place Assessment and Plan Assessment: OR for right-sided ESWL, surgery will be done by Dr. Olvera
[~2022-02-21 09:27] MED LIST: HYDROmorphone 0.5 MG/0.5 ML SYRINGE IVP PRN; LACTATED RINGERS 1,000 ML IV SCH; MIDAZOLAM 2 MG/2 ML VIAL IV PRN
--- NOTE | 2022-02-21 10:09 | XR ---
EXAMINATION TYPE: XR KUB DATE OF EXAM: 02/21/2022 COMPARISON: 02/15/2022 INDICATION: Right side kidney stoner TECHNIQUE: Single view abdomen FINDINGS: There is a normal bowel gas pattern. Psoas margins are normal. No organomegaly is present. 0.6 cm irregular calcification overlying the right L4 transverse process is adjacent to a right urete ral stent appears to correlate with the prior ureteral stone unchanged in position. IMPRESSION: 1. Mid right ureteral calcification adjacent to ureteral stent.
[2022-02-21] MEDS ORDERED: MIDAZOLAM 2 MG/2 ML VIAL ONE (10:25)
[2022-02-21] MEDS ORDERED: LIDOCAINE 2% INJ 20 MG/ML (2 ML VIAL) ONE (10:25)
[2022-02-21] MEDS ORDERED: PROPOFOL 10 MG/ML 20 ML VIAL IV ONE (10:25)
[2022-02-21] MEDS ORDERED: KETAMINE 10 MG/ML 20 ML VIAL ONE (10:25)
[2022-02-21] MEDS ORDERED: fentaNYL (PF) 50 MCG/ML 2 ML AMP ONE (10:25)
[2022-02-21] MEDS ORDERED: ePHEDrine 50 MG/ML 1 ML VIAL ONE (10:25)
[2022-02-21] MEDS ORDERED: FUROSEMIDE 10 MG/ML 2 ML VIAL ONE (10:25)
--- NOTE | 2022-02-21 11:21 | P.OP ---
Date of Procedure: 02/21/22 Preoperative Diagnosis: Right ureteral calculus Postoperative Diagnosis: Same Procedure(s) Performed: Right extracorporal shockwave lithotripsy (ESWL) Anesthesia: MAX Surgeon: Andres Olvera Estimated Blood Loss (ml): 0 IV fluids (ml): 500 Pathology: none sent Condition: stable Disposition: PACU Indications for Procedure: This is a 51-year-old male with a 5 mm right-sided midureteral stone. He is status post right-sided stent insertion on February 17, attempted ureteroscopy at that time was unsuccessful due to narrowing of the distal ureter. He presents today for ESWL. Operative Findings: No obvious fragmentation of the calculus is noted. Description of Procedure: The patient was taken to the operating room and placed on the Dornier Valneva Delta II lithotripter in the supine position. The calculus was seen on biplanar fluoroscopy. Once the patient was properly positioned and sedated, lithotripsy was performed. The energy level was gradually increased per protocol, to an energy level of 6. A total of 3000 shocks were given at a rate of 80 shocks per minute. Fluoroscopy was utilized at a minimum to ensure proper positioning and determine the treatment status. There was questionable change in the appearance of the calculus. The patient tolerated the procedure well was taken to the recovery room in stable condition. Instructions were given to strain the urine, and the patient will follow-up within one week.
[2022-02-21 11:36] VITALS: TEMP 97.1
[2022-02-21 12:34] VITALS: RESP 18
[2022-02-21 12:54] VITALS: BP 137/86; PULSE 72
== END 2022-02-21 12:56 | disposition home or self-care (01) ==
LOC: ORWHC2ENDO 09:27
PROVIDERS: ATTEND Urology
DX: N20.1 Calculus of ureter (principal)
CPT/HCPCS: 74018; 50590; J2250; J1940; J3010; J2704; J2001

== ENCOUNTER → 2022-03-01 | Outpatient (CLI) | payer BC ==
--- NOTE | 2022-03-02 04:43 | XR ---
EXAMINATION TYPE: XR KUB DATE OF EXAM: 03/01/2022 Comparison: 02/21/2022 Clinical History: 51-year-old male right flank pain, KUB N20.1 CALCULUS OF URETER Findings: Right-sided ureteral stent noted. Nonobstructive bowel gas pattern. Left-sided pelvic phlebolith. Pos sible faint 5 mm density adjacent to the mid segment of the ureteral stent located a centimeter more inferior than prior exam. Stool within the right side of the colon. Impression: Possible faint 5 mm calcification along the midsegment of the right ureteral stent, approximately 1 c m more inferior than on the prior exam.
== END | disposition home or self-care (01) ==
LOC: RADXRMAIN 12:03
PROVIDERS: ATTEND Urology
DX: Z96.0 Presence of urogenital implants (principal)
CPT/HCPCS: 74018

== ENCOUNTER 2022-03-14 07:00 | Day surgery (SDC) | payer BC ==
[2022-03-10 09:22] VITALS: BMI 30.4
[~2022-03-14 07:00] MED LIST changes: +DEXAMETHASONE SOD PHOSPHATE 4 MG/ML 1 ML VIAL IV ONE; +ONDANSETRON 4 MG/2 ML VIAL IVP ONE; +SCOPOLAMINE 1 MG/72 HR PATCH TRANSDERM ONE
--- NOTE | 2022-03-14 07:30 | XR ---
EXAMINATION TYPE: XR KUB DATE OF EXAM: 03/14/2022 7:14 AM CLINICAL HISTORY: Pre-open Right sided kidney stones. TECHNIQUE: Two supine KUB images of the abdomen are obtained. COMPARISON: Abdominal x-ray March 01, 2022. FINDINGS: Persistent right double-J ureter stent. No definitive nephrolithiasis current study. Subopt imal evaluation of right kidney due to overlying colonic fecal debris. Small densities in the pelvis suspect phleboliths redemonstrated. Overall nonobstructive bowel gas pattern. Visualized osseous structures are intact. IMPRESSION: As above.
--- NOTE | 2022-03-14 07:49 | P.HPIHPCON ---
History of Present Illness This is a 51-year-old male with history of a 6 mm right-sided ureteral stone. He underwent ESWL on February 21, which failed to fragment the stone. Presents today for ureteroscopy with holmium laser. Discussed the risk which includes but not limited to bleeding, infection, injury to the ureter. Discussed risk of anesthesia. He understood all the risk and agreed to proceed with cystoscopy, right ureteroscopy, holmium laser lithotripsy, stone basketing and stent removal Consent for Procedure: I have explained the operation/procedure to the patient, including the risks, benefits, side effects, alternative therapies (including not receiving the proposed treatment or service), the likelihood of the patient achieving his/her goals, and potential recuperation problems for the procedure/sedation/analgesia, as well as any blood products, if indicated. I also explained to the patient the risks, benefits and side effects of the alternatives, as well as the risks related to not receiving the proposed procedure, care, treatment, or services. Past Medical History Past Medical History: GERD/Reflux Additional Past Medical History / Comment(s): Diverticultis, kidney stones. History of Any Multi-Drug Resistant Organisms: None Reported Past Surgical History: No Surgical Hx Reported Additional Past Surgical History / Comment(s): EGD, colonoscopy, cystoscopy, right ureteral stent. Past Anesthesia/Blood Transfusion Reactions: No Reported Reaction Past Psychological History: No Psychological Hx Reported Smoking Status: Never smoker Past Alcohol Use History: None Reported Past Drug Use History: None Reported - Past Family History Father Family Medical History: Diabetes Mellitus, Myocardial Infarction ([place]), Pulmonary Embolus Brother(s) Family Medical History: Pulmonary Embolus Medications and Allergies Home Medications Medication Instructions Recorded Confirmed Type No Known Home Medications 03/10/22 03/14/22 History Allergies Allergy/AdvReac Type Severity Reaction Status Date / Time No Known Allergies Allergy Verified 03/14/22 07:36 Surgical - Exam Vital Signs Temp Pulse Resp BP Pulse Ox 97.9 F 72 16 121/76 94 L 03/14/22 07:45 03/14/22 07:45 03/14/22 07:45 03/14/22 07:45 03/14/22 07:45 - General no distress, no pain - Eyes normal ocular movement, no pale - ENT normal nares, normal mucosa - Respiratory normal expansion, normal respiratory effort - Abdomen Abdomen: soft, non tender Assessment and Plan Assessment: OR for right ureteroscopy, holmium laser lithotripsy, stone basketing and stent removal
[2022-03-14] MEDS ORDERED: fentaNYL (PF) 50 MCG/ML 2 ML AMP ONE (08:37)
[2022-03-14] MEDS ORDERED: MIDAZOLAM 2 MG/2 ML VIAL ONE (08:37)
[2022-03-14] MEDS ORDERED: PROPOFOL 10 MG/ML 20 ML VIAL IV ONE (08:37)
[2022-03-14] MEDS ORDERED: LIDOCAINE 2% INJ 20 MG/ML (2 ML VIAL) ONE (08:37)
--- NOTE | 2022-03-14 09:35 | P.OP ---
Date of Procedure: 03/14/22 Preoperative Diagnosis: Right ureteral stone Postoperative Diagnosis: Same Procedure(s) Performed: Cystoscopy, right ureteroscopy, holmium laser lithotripsy, stone basketing and stent removal Implants: none Anesthesia: MAX Surgeon: Seferino Ball Estimated Blood Loss (ml): 5 Pathology: other (right ureteral stone) Condition: stable Disposition: PACU Indications for Procedure: This is a 51-year-old male with history of a 6 mm right-sided ureteral stone. He underwent ESWL on February 21, which failed to fragment the stone. Presents today for ureteroscopy with holmium laser. Discussed the risk which includes but not limited to bleeding, infection, injury to the ureter. Discussed risk of anesthesia. He understood all the risk and agreed to proceed with cystoscopy, right ureteroscopy, holmium laser lithotripsy, stone basketing and stent removal Description of Procedure: Patient brought to the operating room, general anesthesia was induced. He was prepped and draped in sterile fashion and placed in dorsal lithotomy position. Cystoscopy fitted with a 21-Khmer sheath was inserted per urethra, cystoscopy was performed which showed no abnormality within the bladder. Attention was carried to the right ureteral stent which was removed. Next a semirigid ureteroscope was inserted through the urethra and advanced up the right ureteral orifice. The stone was encountered in the mid ureter. Using the holmium laser the stone was fragmented into small fragments, sizable fragments were removed using the stone basket. At this time the ureteroscope was advanced all the way up to the proximal ureter which showed no additional fragments or injury to the ureter. Next a sensor wire was advanced through the ureteroscope and the ureteroscope was withdrawn with the wire in place. Next the flexible ureteroscope was advanced over the wire under fluoroscopy into the kidney. Renoscopy was performed which showed a small fragments in the renal pelvis which was dusted using the holmium laser. Repeat renoscopy showed no additional sizable stones or injury to the kidney. Pullback ureteroscopy was performed which showed no injury to the ureter or any sizable fragments. . There was minimal ureteral edema thus a stent was not placed. The bladder was emptied at the end of the case. Patient tolerated the procedure well and was taken to recovery in stable condition
[2022-03-14 09:45] VITALS: TEMP 97
[2022-03-14 09:56] VITALS: RESP 16
--- NOTE | 2022-03-14 09:56 | FL ---
EXAMINATION TYPE: FL guidance operating room DATE OF EXAM: 03/14/2022 CLINICAL HISTORY: Right ureter stone. TECHNIQUE: Fluoroscopy. COMPARISON: Same-day abdominal x-ray. FINDINGS: Fluoroscopic guidance was provided during right-sided lithotripsy procedure performed by Emily Eastman. A total of 4 seconds of fluoroscopic time was utilized during the procedure and 2 spot im ages was acquired. Images acquired show advancement of guidewire and portions of ureter stent. IMPRESSION: As Above.
[2022-03-14] MEDS ORDERED: KETOROLAC 15 MG/ML 1 ML VIAL IVP ONE (10:12)
[2022-03-14 11:01] VITALS: BP 133/86; PULSE 58
== END 2022-03-14 10:50 | disposition home or self-care (01) ==
LOC: OR 07:00
PROVIDERS: ATTEND Urology
DX: N20.1 Calculus of ureter (principal); K21.9 Gastro-esophageal reflux disease without esophagitis; Z87.442 Personal history of urinary calculi; Z83.3 Family history of diabetes mellitus; Z82.49 Family history of ischemic heart disease and other diseases of the circulatory system; Z87.19 Personal history of other diseases of the digestive system
CPT/HCPCS: 82365; 74018; 52353; C1769; J2250; J1100; J0690; J2405; J3010; J1885; J2704; J1170; J2001

== ENCOUNTER 2023-11-14 08:27 | Day surgery (SDC) | payer BC ==
[2023-11-10 14:02] VITALS: BMI 33.7
[2023-11-14] MEDS: LACTATED RINGERS 1,000 ML IV SCH (08:49)
[2023-11-14] MEDS ORDERED: PROPOFOL 10 MG/ML 20 ML VIAL IV ONE (08:56)
[2023-11-14] MEDS ORDERED: LIDOCAINE 1% INJ 10MG/ML (20 ML MDV) ONE (08:56)
--- NOTE | 2023-11-14 09:04 | P.GSHP ---
History of Present Illness H&P Date: 11/14/23 Chief Complaint: Colon cancer screening 53-year-old male here for colonoscopy. Last colonoscopy 9 years ago. Patient with history of diverticulitis although has not had attacks in years. No new complaints. Past Medical History Past Medical History: GERD/Reflux Additional Past Medical History / Comment(s): Diverticultis, kidney stones. History of Any Multi-Drug Resistant Organisms: None Reported Past Surgical History: No Surgical Hx Reported Additional Past Surgical History / Comment(s): EGD, colonoscopy, cystoscopy, right ureteral stent.stent now out Past Anesthesia/Blood Transfusion Reactions: No Reported Reaction Additional Past Anesthesia/Blood Transfusion Reaction / Comment(s): no blood transfusion Smoking Status: Never smoker - Past Family History Father Family Medical History: Diabetes Mellitus, Myocardial Infarction ([place]), Pulmonary Embolus Brother(s) Family Medical History: Pulmonary Embolus Medications and Allergies Home Medications Medication Instructions Recorded Confirmed Type No Known Home Medications 11/10/23 11/14/23 History Allergies Allergy/AdvReac Type Severity Reaction Status Date / Time No Known Allergies Allergy Verified 11/14/23 08:40 Surgical - Exam Vital Signs Temp Pulse Resp BP Pulse Ox 97.3 F L 81 16 125/72 96 11/14/23 08:43 11/14/23 08:43 11/14/23 08:43 11/14/23 08:43 11/14/23 08:43 Physical exam: General: Well-developed, well-nourished HEENT: Normocephalic, sclerae nonicteric Abdomen: Nontender, nondistended Extremities: No edema Neuro: Alert and oriented Assessment and Plan (1) Colon cancer screening Narrative/Plan: Will proceed with colonoscopy at this time. Current Visit: Yes Status: Acute Code(s): Z12.11 - ENCOUNTER FOR SCREENING FOR MALIGNANT NEOPLASM OF COLON SNOMED Code(s): 231807017
--- NOTE | 2023-11-14 09:18 | P.PCN ---
Date of Procedure: 11/14/23 Procedure(s) Performed: PREOPERATIVE DIAGNOSIS: Colon cancer screening POSTOPERATIVE DIAGNOSIS: Transverse colon polyp PROCEDURE: Colonoscopy with snare polypectomy ANESTHESIA: MAC SURGEON: Corey Armenta M.D. SPECIMENS: Transverse colon polyp ENDOSCOPIC PROCEDURE: The patient was placed on the endoscopy table in the left decubitus position. The Olympus colonoscope was inserted into the anus and passed under direct visualization to the base of the cecum. The appendiceal orifice was visualized. From that point the scope was slowly withdrawn inspecting all surfaces carefully. There were no neoplastic inflammatory or polypoid lesions throughout the cecum and ascending colon. In the transverse co nicole a small polyp was removed using the snare without cautery technique. The remainder of the transverse descending sigmoid and rectum appeared normal. The patient had mild left-sided diverticulosis. Digital rectal examination was normal. The patient was taken to the recovery room in stable condition per anesthesia guidelines. RECOMMENDATIONS: Await biopsy results. Anticipate repeat colonoscopy 5 to 10 years.
[2023-11-14 09:24] VITALS: TEMP 97.3
[2023-11-14 10:00] VITALS: BP 118/76; PULSE 85; RESP 16
== END 2023-11-14 09:52 | disposition home or self-care (01) ==
LOC: ORWHC2ENDO 08:27
PROVIDERS: ATTEND Surgery
DX: Z12.11 Encounter for screening for malignant neoplasm of colon (principal); D12.3 Benign neoplasm of transverse colon; K57.30 Diverticulosis of large intestine without perforation or abscess without bleeding; K21.9 Gastro-esophageal reflux disease without esophagitis; Z87.442 Personal history of urinary calculi
CPT/HCPCS: 88305; 45385; J2001; J2704

== ENCOUNTER 2024-12-22 08:54 | Emergency (ER) | payer BC ==
[2024-12-22 09:00] VITALS: TEMP 97.7
--- NOTE | 2024-12-22 11:12 | US ---
EXAMINATION TYPE: US venous doppler duplex LE RT DATE OF EXAM: 12/22/2024 10:59 AM COMPARISON: NONE CLINICAL INDICATION: Male, 54 years old with history of eval for dvt; family hx of dvt, rt leg pain, no swelling or redness, not currently on blood thinners, Pain TECHNIQUE: The lower extremity deep venous system is examined utilizing real time linear array sonog julius with graded compression, color doppler sonography, and spectral doppler. SIDE PERFORMED: Right FINDINGS: VESSELS IMAGED: Common Femoral Vein Deep Femoral Vein Greater Saphenous Vein * Femoral Vein Popliteal Vein Small Saphenous Vein * Proximal Calf Veins (* superficial vessels) The deep venous system of the right lower extremity from the common femoral vein to the proximal calf veins is patent and compressible with augmentable flow with normal waveforms. IMPRESSION: No evidence of right lower extremity DVT from the common femoral vein to the proximal calf veins [facility], Workstation: TJ, 12/22/2024 11:10 AM
--- NOTE | 2024-12-22 11:24 | ED ---
General Adult HPI - General Chief complaint: Extremity Injury, Lower Stated complaint: right leg pain Time Seen by Provider: 12/22/24 09:00 Source: patient, RN notes reviewed, old records reviewed Mode of arrival: ambulatory - History of Present Illness Initial comments: Patient is a 54-year-old male presents emergency department complaining of right calf pain. Has a family history of blood clots and is concerned that he may have a blood clot. Denies any swelling. Denies any history of blood clots. Denies chest pain or shortness of breath. Has no other acute complaints at this time. Seeking down ultrasound to evaluate for DVT. Denies any obvious injuries. Ambulates without issue. States it seems to be deeper than the muscle of his right calf which is why he is concerned. Pain started this morning when he woke up. - Related Data Home Medications Medication Instructions Recorded Confirmed No Known Home Medications 11/10/23 11/14/23 Allergies Allergy/AdvReac Type Severity Reaction Status Date / Time No Known Allergies Allergy Verified 12/22/24 09:00 Review of Systems ROS Statement: Those systems with pertinent positive or pertinent negative responses have been documented in the HPI. Review of Systems: CONST: Denies fever EYES: Denies blurry vision ENT: Denies nasal congestion C/V: Denies Chest pain RESP: Denies shortness of breath GI: Denies abdominal pain : Denies dysuria SKIN: Denies rash. MSK: Endorses right calf pain NEURO: Denies headache ROS Other: All systems not noted in ROS Statement are negative. Past Medical History Past Medical History: GERD/Reflux Additional Past Medical History / Comment(s): Diverticultis, kidney stones. History of Any Multi-Drug Resistant Organisms: None Reported Past Surgical History: No Surgical Hx Reported Additional Past Surgical History / Comment(s): EGD, colonoscopy, cystoscopy, right ureteral stent.stent now out Past Anesthesia/Blood Transfusion Reactions: No Reported Reaction Additional Past Anesthesia/Blood Transfusion Reaction / Comment(s): no blood transfusion Past Psychological History: No Psychological Hx Reported Smoking Status: Never smoker Past Alcohol Use History: None Reported Past Drug Use History: None Reported - Past Family History Father Family Medical History: Diabetes Mellitus, Myocardial Infarction (MS), Pulmonary Embolus Brother(s) Family Medical History: Pulmonary Embolus General Exam - General Exam Comments Initial Comments: General: Appears in no acute distress. HEAD: Normal with no signs of head trauma. EYES: EOMI. ENT: Hearing grossly intact. RESPIRATORY: No respiratory distress. C/V: Regular rate and rhythm. ABD: Abdomen is nondistended. EXT: No obvious tenderness to palpation of the right calf. Patient states that the pain is located deeper. Neurovascular intact in the right lower extremity. No obvious deformity. No obvious skin changes. Unremarkable exam. SKIN: No rashes or lesions observed on exposed skin. NEURO: Alert and oriented. Course Vital Signs 12/22/24 12/22/24 08:55 11:29 Temperature 97.7 F Pulse Rate 76 63 Respiratory 16 20 Rate Blood Pressure 165/81 141/99 O2 Sat by Pulse 98 96 Oximetry Medical Decision Making - Medical Decision Making Was pt. sent in by a medical professional or institution (NEHEMIAS Marrero, PLASTERER APPRENTICE, urgent care, hospital, or residential...) When possible be specific @ -No Did you speak to anyone other than the patient for history (EMS, parent, family, police, friend...)? What history was obtained from this source @ -No Did you review nursing and triage notes (agree or disagree)? Why? @ -I reviewed and agree with nursing and triage notes Were old charts reviewed (outside hosp., previous admission, EMS record, old EKG, old radiological studies, urgent care reports/EKG's, residential records)? Report findings @ -No old charts were reviewed Differential Diagnosis (chest pain, altered mental status, abdominal pain women, abdominal pain men, vaginal bleeding, weakness, fever, dyspnea, syncope, headache, dizziness, GI bleed, back pain, seizure, CVA, palpatations, mental health, musculoskeletal)? @ -DVT, muscle sprain, calf strain, muscle spasm. This list is not all inclusive. EKG interpreted by me (3pts min.). @ -None X-rays interpreted by me (1pt min.). @ -None done CT interpreted by me (1pt min.). @ -None done U/S interpreted by me (1pt. min.). @ -Ultrasound revealed no evidence of DVT What testing was considered but not performed or refused? (CT, X-rays, U/S, labs)? Why? @ -None What meds were considered but not given or refused? Why? @ -None Did you discuss the management of the patient with other professionals (professionals i.e. , PA, PLASTERER APPRENTICE, lab, RT, psych nurse, social science professor, psychology fellow, teacher, global safety officer, case management rn)? Give summary @ -No Was smoking cessation discussed for >3mins.? @ -No Was critical care preformed (if so, how long)? @ -No Were there social determinants of health that impacted care today? How? (Homelessness, low income, unemployed, alcoholism, drug addiction, transportation, low edu. Level, literacy, decrease access to med. care, [facility], rehab)? @ -No Was there de-escalation of care discussed even if they declined (Discuss DNR or withdrawal of care, Hospice)? DNR status @ -No What co-morbidities impacted this encounter? (DM, HTN, Smoking, COPD, CAD, Cancer, CVA, ARF, Chemo, Hep., AIDS, mental health diagnosis, sleep apnea, morbid obesity)? @ -None Was patient admitted / discharged? Hospital course, mention meds given and route, prescriptions, significant lab abnormalities, going to OR and other pertinent info. @ -Patient presents for evaluation of DVT. Had muscle spasm/pain in his right calf. No concern for PE at this time as he has no shortness of breath, chest pain or other symptoms. We will obtain venous duplex ultrasound of the right l ower extremity. He was in agreement this plan. Vital signs are within acceptable limits. Patient declines any analgesia medications. Ultrasound revealed no evidence of DVT. I updated the patient. He will be discharged home. Strict return precautions discussed. I instructed the patient to follow up with their PCP in the next 1-3 days. I explained that the patient should return to the emergency department if they experience any worsening symptoms. Strict return precautions were discussed with the patient. The patient expressed understanding of these instructions. I answered all questions that the patient had. The patient was discharged home in good condition with their prescriptions and follow up information. Undiagnosed new problem with uncertain prognosis? @ -No Drug Therapy requiring intensive monitoring for toxicity (Heparin, Nitro, Insulin, Cardizem)? @ -No Were any procedures done? @ -No Diagnosis/symptom? @ -Right calf pain Acute, or Chronic, or Acute on Chronic? @ -Acute Uncomplicated (without systemic symptoms) or Complicated (systemic symptoms)? @ -Uncomplicated Side effects of treatment? @ -No Exacerbation, Progression, or Severe Exacerbation? @ -No Poses a threat to life or bodily function? How? (Chest pain, USA, MS, pneumonia, PE, COPD, DKA, ARF, appy, cholecystitis, CVA, Diverticulitis, Homicidal, Suicidal, threat to staff... and all critical care pts) @ -Unlikely at this time Disposition Clinical Impression: Pain of right calf Disposition: HOME SELF-CARE Condition: Good Additional Instructions: You likely suffered a muscle strain or spasm. No evidence of DVT on ultrasound today. Return to the ER for any worsening symptoms. Follow-up with your PCP in the next 1 to 3 days. Is patient prescribed a controlled substance at d/c from ED?: No Referrals: Jose Reed DO [Primary Care Provider] - 1-2 days Time of Disposition: 11:24
[2024-12-22 11:30] VITALS: BP 141/99; PULSE 63; RESP 20
== END 2024-12-22 11:30 | disposition home or self-care (01) ==
LOC: EC 08:54
DX: M79.661 Pain in right lower leg (principal)
CPT/HCPCS: 99283